=== PATIENT | male | born 1965 | race Caucasian/White ===

== ENCOUNTER → 2022-04-11 | Outpatient (CLI) ==
[~2022-04-11] MED LIST: ATOR1TAB21 PO; CETI-24 PO; IBUP200C89 PO; LOSA100T5 PO; METO50TA7 PO; MONT10TA97 PO
== END ==
LOC: M LABSMTC 09:32
PROVIDERS: ATTEND Anesthesiology
DX: Z01.812 Encounter for preprocedural laboratory examination (principal); Z20.822 Contact with and (suspected) exposure to COVID-19

== ENCOUNTER 2022-04-14 07:48 | Day surgery (SDC) | payer BC ==
[~2022-04-14] VITALS: Ht 185.4 cm; Wt 136.9 kg
[~2022-04-14 07:48] MED LIST changes: +NS 1,000 ML IV ONE
[2022-04-14] MEDS ORDERED: propofoL 200 MG/20 ML VIAL As Ordered ONE ×2 (09:50→09:53)
[2022-04-14] MEDS ORDERED: LIDOCAINE 2% 100MG/5ML SDV (FOR ANES.) As Ordered ONE ×2 (09:50→09:55)
== END 2022-04-14 10:25 | disposition home or self-care (01) ==
LOC: M OPP 07:48
PROVIDERS: ATTEND Internal Medicine Gastroenterology
DX: Z12.11 Encounter for screening for malignant neoplasm of colon (principal); K63.5 Polyp of colon; K64.0 First degree hemorrhoids; I10 Essential (primary) hypertension; E78.5 Hyperlipidemia, unspecified; M10.9 Gout, unspecified; F17.210 Nicotine dependence, cigarettes, uncomplicated; Z88.8 Allergy status to other drugs, medicaments and biological substances; Z79.899 Other long term (current) drug therapy

== ENCOUNTER → 2024-01-21 | Outpatient (CLI) | payer BC ==
[~2024-01-21] MED LIST changes: -NS 1,000 ML IV ONE
[2024-01-21 12:11] LABS: BASO % 0.4 % (0.0-1.0); EOS # 0.1 10^3/uL (0.0-0.5); EOS % 0.7 % (0.0-3.0); HEMATOCRIT 41.5 % (42.0-52.0); HEMOGLOBIN 14.5 g/dl (13.5-17.5); LYMPH % 24.7 % (24.0-44.0); MEAN CORPUSCULAR HEMOGLOBIN 33.7 pg (27.0-33.0); MEAN CORPUSCULAR HGB CONC 34.9 g/dl (32.0-36.5); MEAN CORPUSCULAR VOLUME 96.5 fl (80.0-96.0); MONO # 0.8 10^3/uL (0.0-0.8); MONO % 9.5 % (2.0-8.0); NEUTROPHILS # 5.3 10^3/uL (1.5-8.5); NEUTROPHILS % 64.6 % (36.0-66.0); PLATELET COUNT, AUTOMATED 248 10^3/uL (150-450); WHITE BLOOD COUNT 8.3 10^3/uL (4.0-10.0)
[2024-01-21 12:51] LABS: ALBUMIN 3.4 G/DL (3.2-5.2); ALKALINE PHOSPHATASE 73 U/L (46-116); ALT/SGPT 34 U/L (7.0-40); AST/SGOT 23 U/L (<34); BILIRUBIN,TOTAL 0.5 MG/DL (0.3-1.2); BLOOD UREA NITROGEN 14 MG/DL (9-23); CALCIUM LEVEL 9.2 MG/DL (8.5-10.1); CARBON DIOXIDE LEVEL 30 MMOL/L (20-31); CHLORIDE LEVEL 106 MMOL/L (98-107); CREATININE FOR GFR 0.94 MG/DL (0.70-1.30); GLOMERULAR FILTRATION RATE > 60.0 (>56); GLUCOSE, FASTING 113 MG/DL (60-100); SODIUM LEVEL 142 MMOL/L (136-145); TOTAL PROTEIN 6.7 G/DL (5.7-8.2)
== END ==
LOC: M RAD 11:49
PROVIDERS: ATTEND Physician Assistant
DX: M79.671 Pain in right foot (principal); R22.41 Localized swelling, mass and lump, right lower limb

== ENCOUNTER → 2024-03-29 | Outpatient (CLI) | payer BC | LOC: M WUC 08:12 | PROVIDERS: ATTEND Nurse Practitioner Adult Health | DX: M47.896 Other spondylosis, lumbar region (principal); M47.892 Other spondylosis, cervical region; M25.511 Pain in right shoulder; M54.2 Cervicalgia; M54.50 Low back pain, unspecified; M21.619 Bunion of unspecified foot ==